=== PATIENT | male | born 1980 | race Caucasian/White ===

== ENCOUNTER 2018-09-22 17:28 | Emergency (ER) | payer BC ==
[~2018-09-22] VITALS: Ht 170.2 cm; Wt 74.8 kg
[2018-09-22] MEDS ORDERED: ALEVE220 M1 (18:52)
== END 2018-09-22 21:31 | disposition home or self-care (01) ==
LOC: ER 17:28
DX: T23.252A Burn of second degree of left palm, initial encounter (principal); T23.232A Burn of second degree of multiple left fingers (nail), not including thumb, initial encounter; X19.XXXA Contact with other heat and hot substances, initial encounter; Y93.89 Activity, other specified; Y92.89 Other specified places as the place of occurrence of the external cause; Y99.8 Other external cause status